=== PATIENT | male | born 1930 | race Caucasian/White ===

== ENCOUNTER → 2017-02-22 | Outpatient (CLI) | payer MEDICARE, OTHER ==
[~2017-02-22] MED LIST: ALBUTEROL2.5 MG/0.5 NEB; CARBIDOPA-LEVO1 EAC4 PO; FLOMAX0.4 MG PO; MUCINEX600 M1 PO; NORCO 325-5 MG1 TAB PO; OMNICEF300 MG PO; SINEMET CR 50-21 TAB PO; ZITHROMAX250 MG PO
== END | disposition short-term general hospital (02) ==
LOC: CLUROL 01-25 20:04
DX: R32 Unspecified urinary incontinence (principal)

== ENCOUNTER 2017-07-29 15:51 | Emergency (ER) | payer MEDICARE, OTHER ==
[~2017-07-29] VITALS: Ht 182.9 cm; Wt 83.0 kg
== END 2017-07-29 17:45 | disposition short-term general hospital (02) ==
LOC: ER 15:51
DX: M54.5 Low back pain (principal); Z79.891 Long term (current) use of opiate analgesic